=== PATIENT | female | born 1935 | race Caucasian/White ===

== ENCOUNTER → 2017-10-11 | Emergency (ER) | payer MEDICARE, OTHER ==
[~2017-10-11] VITALS: Ht 172.7 cm; Wt 54.4 kg
[~2017-10-11] MED LIST: AMPICILLIN TRI250 MG PO; CIPRO250 MG PO; FLUOXETINE HCL20 MG PO; FOLIC ACID1 MG PO; FOSAMAX70 MG PO; IBUPROFEN200 MG PO; LEVOXYL100 MCG PO; MELOXICAM7.5 MG; MIRTAZAPINE15 MG PO; MULTI-VITAMIN1 EACH PO; THYROID MED; VITAMIN B-12100 MCG PO; VITAMIN B-6100 MG PO; [UNRECOGNIZED DRUG - OTHER] PO
== END ==
LOC: ED 09:53
DX: S39.012A Strain of muscle, fascia and tendon of lower back, initial encounter (principal); E03.9 Hypothyroidism, unspecified; Z79.899 Other long term (current) drug therapy; W19.XXXA Unspecified fall, initial encounter
CPT/HCPCS: 72100; 99283

== ENCOUNTER 2017-10-18 16:21 | Emergency (ER) | payer MEDICARE, OTHER ==
[~2017-10-18] VITALS: Ht 172.7 cm; Wt 45.4 kg
[~2017-10-18 16:21] MED LIST changes: -CIPRO250 MG PO
[2017-10-18] MEDS ORDERED: CIPRO250 MG PO (18:02)
--- NOTE | 2017-10-19 12:25 | EKG ---
[facility] [address] [facility] [place] [address] Signed Sinus rhythm with premature atrial complexes Septal infarct , age undetermined Prolonged QT Abnormal ECG No previous ECGs available Confirmed by HUONG CLARK MD ([id number]) on 10/19/2017 12:25:31 PM Electronically Signed By: HUONG CLARK MD 10/19/17 1225 PATIENT NAME: ASHLEY PINTO Electrocardiogram DATE OF : 35 PHYSICIAN: HUONG CLARK MD REPORT #: [id number] REPORT IS CONFIDENTIAL AND NOT TO BE RELEASED WITHOUT AUTHORIZATION
== END 2017-10-18 18:19 | disposition home or self-care (01) ==
LOC: ED 16:21
DX: R07.9 Chest pain, unspecified (principal); N39.0 Urinary tract infection, site not specified; E03.9 Hypothyroidism, unspecified; Z79.899 Other long term (current) drug therapy
CPT/HCPCS: 71045; 80053; 81001; 84484; 85025; 87088; 93005; 93010; 96374; 96375; 99283; J1100; J1885

== ENCOUNTER 2018-05-20 08:30 | Inpatient (IN) | payer MEDICARE, OTHER ==
[~2018-05-20] VITALS: Ht 172.7 cm; Wt 40.8 kg
[~2018-05-20 08:30] MED LIST changes: +AMOXICILLIN250 MG PO; +CEFTRIAXONE1 G1 IV; +CIPRO250 MG PO; +CYCLOBENZAPRINE10 MG PO; +FLOMAX0.4 MG PO; -FLUOXETINE HCL20 MG PO; +KLOR-CON 1010 MEQ PO; -LEVOXYL100 MCG PO; +LEVOXYL75 MCG PO; +MULTI VITAMIN1 EACH PO; +PREDNISONE20 MG PO; +PROZAC40 MG PO; +SENNA-S TABLET1 EACH PO; +SYNTHROID25 MCG PO; +ULTRAM50 MG PO
--- OUTSIDE RECORDS SUMMARY | 2018-05-20 08:36 | XMS ---
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 Care History Medical/Surgical 01/14/2018 [facility] - Patient is currently established with [facility]. If patient is seen in the ED during business hours. Please contact CHWs at [facility]. Care Recommendation: This patient has had 5 or more Emergency Department visits in the last 12 months.\T\nbsp; Patient requires education on the scope and purpose of the ED as an acute care provider not a Primary Care Provider and should not be utilized for chronic conditions.\T\nbsp; These are guidelines and the provider should exercise clinical judgment when providing care. 01/10/2018 [facility] - Patient is discharging from [facility] today 01/10/2018. - [facility] does not feel that the patient is ready to go home but patient wants to go home at this time. - Patient has an apt with Dr Kapoor on 01/21/18 to establish care. - CHW has attempted to contact patient son with 3 messages. Patient stated that is the person of contact in regards to her care. 10/22/2017 [facility] - CHW spoke with patient who stated they would like patient to have physical therapy but patient does not have a PCP. - Patient stated they will come on 10/23/[address] Meraz apt to fill out the paperwork to set up patient with a PCP. - CHW stated to contact CHW once paperwork has been turned in so CHW can contact a PCP about reviewing records as soon as possible. Care Recommendation: This patient has had 5 or more Emergency Department visits in the last 12 months.\T\nbsp; Patient requires education on the scope and purpose of the ED as an acute care provider not a Primary Care Provider and should not be utilized for chronic conditions.\T\nbsp; If patient returns to ED please contact Community Health WorkerGabrielle at [phone]. These are guidelines and the provider should exercise clinical judgment when providing care. E.D. VISIT COUNT (12 MO.) 6 [facility] TOTAL 6 NOTE: Visits indicate total known visits. ED/UCC VISIT TRACKING (12 MO.) 05/20/2018 08:31 [facility] TYPE: Emergency COMPLAINT: - WEAKNESS/POSS DEHYDRATION 02/26/2018 23:15 [facility] TYPE: Emergency COMPLAINT: - ALTERED MENTAL STATUS 02/18/2018 12:44 [facility] TYPE: Emergency COMPLAINT: - ABD PAIN 12/07/2017 11:45 [facility] TYPE: Emergency COMPLAINT: - WEIGHT LOSS, R KNEE PAIN DIAGNOSES: - Polymyalgia rheumatica - Localized connective tissue disorder, unspecified - Abnormal weight loss - Stable burst fracture of T11-T12 vertebra, initial encounter for closed fracture - Adverse effect of unspecified narcotics, initial encounter - Unspecified fall, initial encounter - Hypokalemia - Toxic encephalopathy - Hypothyroidism, unspecified - Adult failure to thrive - Urinary tract infection, site not specified - Unspecified urinary incontinence - Other malaise - Unspecified severe protein-calorie malnutrition 10/18/2017 16:22 [facility] TYPE: Emergency COMPLAINT: - CHEST PAIN DIAGNOSES: - Chest pain, unspecified - Other penitentiary (current) drug therapy - Urinary tract infection, site not specified - Hypothyroidism, unspecified 10/11/2017 09:55 [facility] TYPE: Emergency COMPLAINT: - FALL,HEAD BACK PAIN DIAGNOSES: - 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 - Hypothyroidism, unspecified - Unspecified fall, initial encounter - Low back pain - Strain of muscle, fascia and tendon of lower back, initial encounter INPATIENT VISIT TRACKING (12 MO.) 02/26/2018 23:16 [facility] TYPE: Medical Surgical COMPLAINT: - SEPSIS, URINARY SOURCE DIAGNOSES: - Do not resuscitate - Retention of urine, unspecified - Metabolic encephalopathy - Unspecified mood [affective] disorder - Dehydration - Personal history of other diseases of the digestive system - Urinary tract infection, site not specified - 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 - Unspecified severe protein-calorie malnutrition - Adult failure to thrive - Personal history of (healed) osteoporosis fracture - Body mass index (BMI) 19.9 or less, adult - Cachexia - Acute kidney failure, unspecified - Unspecified osteoarthritis, unspecified site - 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 coli] as the cause of diseases classified elsewhere - Esophagitis, unspecified - Unspecified severe protein-calorie malnutrition - Unspecified atrial fibrillation 12/09/2017 00:47 [facility] TYPE: Neuro Surgery DIAGNOSES: 52923. Osteoporotic compression fracture. 66168. Dysphagia, unspecified 41547. Age-related osteoporosis without current pathological fracture 66447. Unspecified fracture of T11-T12 vertebra, initial encounter for closed fracture 12/07/2017 21:14 [facility] TYPE: Medical Surgical COMPLAINT: - WEIGHT LOSS, R KNEE PAIN DIAGNOSES: - Urinary tract infection, site not specified - Adverse effect of unspecified narcotics, initial encounter - Abnormal weight loss - Unspecified severe protein-calorie malnutrition - Hypothyroidism, unspecified - Other malaise - Stable burst fracture of T11-T12 vertebra, initial encounter for closed fracture - Unspecified urinary incontinence - Unspecified fall, initial encounter - Toxic encephalopathy - Localized connective tissue disorder, unspecified - Hypokalemia - Adult failure to thrive - Polymyalgia rheumatica [email or web address]
[2018-05-20] MEDS ORDERED: FLUOXETINE HCL40 MG PO (09:49)
[2018-05-20] MEDS ORDERED: SERTRALINE HCL100 MG PO (09:56)
[2018-05-20] MEDS ORDERED: LEVOTHYROXINE25 MCG PO (09:57)
[2018-05-20] MEDS ORDERED: PROTONIX40 MG PO (09:58)
[2018-05-20] MEDS ORDERED: K-TAB ER20 MEQ PO (10:01)
[2018-05-20] MEDS ORDERED: METOPROLOL TART25 MG PO (10:02)
[2018-05-20] MEDS ORDERED: ONDANSETRON ODT8 MG PO (10:03)
--- NOTE | 2018-05-20 12:05 | NUR ---
PATIENT TO FLOOR FROM ED, ANSWERING YES OR NO QUESTIONS, APPEARS DROWSY. FULL BODY ASSESMENT DONE. NEW ORDERS INITIATED. SECOND LACTIC ACID DRAWN. VS STABLE.
--- NOTE | 2018-05-20 12:30 | NUR ---
ASSESSMENT COMPLETED AT THIS TIME. PT IS WIDE AWAKE AND ALERT, CALM, COOPERATIVE AND PLEASANT BUT WITH FLAT AFFECT. PT IS ORIENTED TO SELF BUT DISORIENTED TO ALL ELSE. PT'S ORAL MUCOSAL LINING IS VERY DRY- ORAL CARES COMPLETED. PT'S ON ROOM AIR. LUNG SOUNDS CLEAR/DIMINISHED BUT SHE IS TACHYPNEIC. SHE DENIES ANY SOB OR TROUBLE BREATHING. SHE DOES HAVE A VERY CONGESTED, MOIST COUGH BUT SHE'S VERY WEAK SO HER COUGH IS VERY WEAK- NONPRODUCTIVE AND UNABLE TO COUGH UP SPUTUM. ENCOURAGEMENT TO COUGH AND DEEP BREATHE REQUIRED. SEVERE MALNUTRITION EVIDENT. NORMAL ACTIVE BOWEL SOUNDS. PT COUGHS FREQUENTLY WHILE SWALLOWING. PT STATES SHE'S PASSING GAS BUT IS UNABLE TO TELL ME WHEN HER LAST BM WAS. PT VERY WEAK/ FAILURE TO THRIVE EVIDENT; MOTOR STRENTH WEAK; DENIES ANY NUMBNESS/TINGLING. OVERALL SKIN CONDITION IS DRY AND FRAGILE- NO OPEN WOUNDS ON BODY BUT PT HAS TWO PRESSURE SORES ON HER BODY. MARTHA, SPINAL PROMINENCE ON MID UPPER BACK IS RED AND BLANCHABLE- I PLACED AN ALLEYVN ON THIS FOR PROTECTION. LARGE, RED PRESSURE ULCER ON COCCYX AND SURROUNING BUTTOCKS- MOSTLY BLANCHABLE EXCEPT FOR DIRECTLY ON COCCYX IT IS SLOW TO STEPHANE. ALLEYVN PLACED ON COCCYX FOR SKIN PROTECTION WELL. PT REPOSITIONED TO HER LEFT SIDE WITH PILLOW SUPPORT AT THIS TIME- WILL MAINTAIN Q2HR TURNS/REPOSITIONING- ALL EXTREMITIES ELEVATED ON PILLOWS AND HEELS IN HEEL PROTECTORS. NS RUNNING CONTINUOUSLY AT 200 ML/HR INTO HER LEFT AC PIV WITHOUT COMPLICATIONS. PT HAS ARRIVED WITH A BALDERAS THAT WAS PLACED IN THE ED PRIOR TO TRANSFER- DRAINS ADEQUATE, YELLOW URINE WITH SOME SEDIMENT. BALDERAS CARES COMPLETED. VERY SLOW VERBAL RESPONSE/ MOUTHS HER ONE WORDED RESPONSES. PT SHES HER HEAD NO WHEN ASKED IF SHE NEEDS ANYTHING. SHE DENIES PAIN, N/V, SOB OR BREATHING ISSUES. CALL LIGHT WITHIN REACH. FALL PRECAUTIONS IN PLACE. WILL CONTINUE TO MONITOR.
--- NOTE | 2018-05-20 13:30 | NUR ---
PT SLEEPING WITH HER EYES CLOSED WITHOUT ANY SIGNS OF PAIN OR DISCOMFORT. WILL CONTINUE TO MONITOR.
--- NOTE | 2018-05-20 13:41 | NUR ---
PT RECENTLY ARRIVED FROM ED TO CCU. PT WAS TRYING TO DRINK WITH ASSISTANCE FROM JAROCHO HOLLOWAY, AND COUGHING. RN ENCOURAGED PT TO KEEP COUGHING, AND I FOLLOWED HER LEAD. PT WAS TRYING TO TALK, I TOLD HER I WOULD RETURN. EXTENDED A BLESSING, WILL FOLLOW NEEDED
[2018-05-20] MEDS ORDERED: ASPIR-LOW81 MG PO (13:54)
[2018-05-20] MEDS ORDERED: MIRALAX17 GM PO (13:57)
--- NOTE | 2018-05-20 14:05 | NUR ---
Medications reconciled using [facility]
--- NOTE | 2018-05-20 14:21 | NUR ---
PT CALLED TO GET UP TO THE CAMMODE. PT TOLERATED WELL. ASSISTED BACK TO BED WITH ONE PERSON ASSIST. WILL CONTINUE TO CLOSELY MONITOR.
--- NOTE | 2018-05-20 14:40 | NUR ---
PT REPOSITIONED TO HER RIGHT SIDE WITH PILLOW SUPPORT. ALL EXTREMITIES ELEVATED OFF BED. HEEL PROTECTORS IN PLACE. PT AWAKE AND ALERT; DENIES ANY PAIN AND NODS "YES" THAT SHE IS COMFORTABLE. DENIES ANY FUTHER NEEDS TO BE MET AT THIS TIME. CALL LIGHT WITHIN REACH. FALL PRECAUTIONS IN PLACE. WILL CONTINUE TO MONITOR.
--- NOTE | 2018-05-20 16:30 | NUR ---
ASSESSMENT COMPLETED AT THIS TIME. NO CHANGES FROM 1230 ASSESSMENT EXCEPT LUNG LOBES ARE RHONCI ON EXPIRATION THROUGHOUT. SHE REMAINS TACHYPNEIC AND RT IS AWARE/HAS SEEN THE PT. DEEP BREATHING AND COUGHING EXERCISES COMPLETED WITH THE PT- SHE STILL HAS A VERY WEAK, CONGESTED COUGH. O2 SATS MID 90'S ON ROOM AIR. PT'S BALDERAS DRAINING LIGHT YELLOW ADEQUATE URINE AMOUNT. ORAL CARES GIVEN AGAIN HER MOUTH IS VERY DRY FROM MOUTH BREATHING. ALLEYVNS REMAIN CDI. NO BM. PT REPOSITIONED TO THE LEFT SIDE WITH PILLOWS. HEEL PROTECTORS ON AND ELBOWS OFF BED ON PILLOWS. PT NODS "YES" WHEN ASKED IF SHE'S COMFORTABLE, SHAKES HER HEAD "NO" WHEN ASKED IF IN PAIN, AND SHAKES HER HEAD "NO" WHEN ASKED IF I CAN GET OR DO ANYTHING FOR HER. CALL LIGHT WITHIN REACH. FALL PRECAUTIONS IN PLACE. WILL CONTINUE TO MONITOR.
--- NOTE | 2018-05-20 17:36 | NUR ---
PT RESTING IN BED WITH NO C/O PAIN. NO REQUEST OR CONCERNS. CALL LIGHT WITHIN REACH. WILL CONTINUE TO MONITOR.
--- NOTE | 2018-05-20 18:34 | NUR ---
TURNED PT TO RIGHT SIDE WITH PILLOWS. SHE DENIED ANY PAIN OR DISCOMFORT. NO QUESTIONS OR CONCERNS. CALL LIGHT WITHIN REACH. WILL CONTINUE TO MONITOR.
--- NOTE | 2018-05-20 19:36 | NUR ---
REPORT RC'D FROM DAY SHIFT NURSE AMIE. PT CURRENTLY RESTING IN BED WITH EYES CLOSED, RESPIRATIONS EVEN AND UNLABORED, CRISTEL CUTE DISTRESS NOTED. FULL ASSESSMENT TO BE COMPLETED.
--- NOTE | 2018-05-20 20:02 | NUR ---
PT AWAKENS EASILY TO VERBALI STIMULI. DISORIENTED TO ALL EXCEPT SELF, ABLE TO FOLLOW COMMANDS, SLOW TO RESPOND. SINUS RHYTHM WITH FREQUENT PAC NOTED TO MONITOR, HR 80-90'S, LAST BP 162/71, MAP 90, NO EDEMA NOTED, SKIN COOL, CAPILLARY REFILL LESS THAN 3 SECONDS. DENIES PAIN. DENIES N/T IN EXTREMITIES. RESPIRATIONS 32, SPO2 100% ON ROOM AIR, RHONCHI NOTED IN BUL, OCCANSIONAL NONPRODCUTIVE COUGH, ENCOURAGED I/S USE. BOWEL TONES ACTIVE X4, DENIES NAUSEA, UNKNOWN LAST BM, TOLERATING CLEAR LIQUID DIET, ENCOURAGE PO INTAKE, ASPIRATION PRECAUTIONS. BALDERAS CATH IN PLACE DRAINING YELLOW URINE, WNL. NS INFUSING AT 200 ML/HR, IV SITE PATENT, WNL. PT CURRENTLON SIDE SIDE WITH HEEL PROTECTORS IN PLACE, TURN Q2H, ALLYVN TO COCCXY AND MIDBACK. DENIES OTHER NEEDS. CALL LIGHT WITIN REACH.
--- NOTE | 2018-05-20 21:40 | NUR ---
NO ACUTE CHANGES. PM CARE, ORAL CARE, AND CATH CARE COMPLETED. PT REPOSITIONED TO RIGHT SIDE, HEEL PROTECTORS IN PLACE. WARM BLANKET PROVIDED. PT NODS "YES" WHEN ASKED IF SHE IS COMFORTABLE. PT DENIES OTHER NEEDS. CALL LIGHT WITHIN REACH, REORIENTED TO CALL LIGHT, NODS "YES" IN AGREEANCE TO INSTRUCTIONS.
--- NOTE | 2018-05-20 22:22 | NUR ---
PT'S OXYGEN SATURATION NOTED TO BE 85% WHILE SLEEPING. THIS RN IN ROOM TO ASSESS PT. NO ACUTE DISTRESS NOTED. PT AWAKENS EASILY TO VERBAL STIMULI. 2L NC APPLIED WHILE PT RESTING, CURRENT SPO2 96% ON 2L. WILL CONTINUE TO MONTIOR.
--- NOTE | 2018-05-20 23:00 | NUR ---
PT'S OXYGEN SATURATION NOTED TO BE 87% ON 2L NC. OXYMASK APPLIED AT THIST STEPHANIE, OXYGEN SATURATION INCREASED TO 93% ON 3L. WILL CONTINUE TO MONITOR.
--- NOTE | 2018-05-21 00:15 | NUR ---
PT NOTED TO HAVE SEVERAL RUNS OF NONSUSTAINED SVT WITH HR INTO 160'S THAT QUICKLY RETURNED TO BASELINE HR 90-100'S. PT CURRENTLY RESTING IN BED WITH EYES CLOSED, RESPIRATIONS EVEN AND UNLABORED, NO ACUTE DISTRESS NOTED. PHONE CALL TO DR. BAKER REGARDING HR. PER DR. BAKER, GIVE 5MG METOPROLOL IV ONCE, ORDER READ BACK AND VERIFIED. 5MG IV METOPROLOL GIVEN, WILL CONTINUE TO MONITOR.
--- NOTE | 2018-05-21 01:15 | NUR ---
PT'S HR REMAINS IN THE 140'S W/O RETURN TO BASELINE 90'S. LAST BP 157/92, MAP 110, HR 147. WILL CONTINUE TO MONITOR.
--- NOTE | 2018-05-21 01:35 | NUR ---
PT'S HR REMAINS IN 140'S W/O IMPROVMENT. PHONE TO DR. BAKER REGARDING HR. PER DR. BAKER, GIVE 5MG BOLUS DILTIAZEM ONCE AND BEGIN DILTIAZEM GTT AT 5MG/HOUR, TITRATE NEEDED. ORDER READ BACK AND VERIFIED.
--- NOTE | 2018-05-21 01:45 | NUR ---
5MG IV CARDIZEM BOLUS ADMINISTERED SLOWLY VIA IV PUMP AND CADIZEM GTT INITIATED AT 5MG/HR. IV SITE INTACT AND PATENT.
--- NOTE | 2018-05-21 02:30 | NUR ---
CARDIZEM GTT TITRATED TO 2.5MG/HR FOR HR IN THE 80'S.
--- NOTE | 2018-05-21 03:30 | NUR ---
PT NOTED TO BE OBTUNDED UPON ASSESSMENT, DOES NOT RESPOND TO PAINFUL STIMULI INCLUDING STERNAL RUB, EXTREMITIES FLACCID. PT CURRENTLY ON 4L OXYMASK, ACCESSORY MUSCLE USE NOTED. COURSE LUNG SOUNDS IN LLL. MOIST LUNG SOUNDS WITH EXPIRATORY WHEEZE IN BUL. PHONE CALL TO DR. BAKER REGARDING CHANGES. PER DR. BAKER, OBTAIN ABG AT THIS TIME, COLLECTED. PHONE CALL TO PT'S SON MILY REGARDING CHANGES, SON VERBALIZED "IT'S BEEN A LONG TIME COMING, I WILL BE IN LATER IN THE MORNING, PLEASE CALL FOR ANY NEW CHANGES."
--- NOTE | 2018-05-21 03:30 | NUR ---
DILTIAZEM GTT STOPPED AT THIS TIME.
--- NOTE | 2018-05-21 04:13 | NUR ---
CALLED AND SPOKE TO DR. BAKER REGARDING PT'S ABG RESULTS. ORDERS RECEIVED FOR BIPAP.
--- NOTE | 2018-05-21 04:33 | NUR ---
PHONE CALL TO DR. BAKER REGARDING PT DEMISE. HEART AND LUNG SOUNDS ASCULTATED FOR FULL MINUTE, NO HEART OR LUNG SOUNDS HEARD. NO PERIPHERAL OR CENTERAL PULSES PALPATED.
--- NOTE | 2018-05-21 06:10 | NUR ---
I WAS CALLED IN AFTER PT HAD PASSED. I NOTIFIED PT'S SON WHO IS LISTED NOK IN HER FILE. HE NOTIFIED HIS FATHER, THE PT'S . FAMILY DID NOT DESIRE TO COME INTO THE HOSPITAL TO SEE THE PT. FAMILY DECIDED ON [facility]. I CALLED [facility], BODY WAS SENT THERE.
--- NOTE | 2018-05-21 06:21 | EKG ---
[facility] [address] [facility] [place] [address] Signed Atrial fibrillation with rapid ventricular response Septal infarct (cited on or before 18-OCT-2017) Abnormal ECG When compared with ECG of 26-FEB-2018 23:49, Atrial fibrillation has replaced Sinus rhythm Vent. rate has increased BY 49 BPM Questionable change in initial forces of Anterior leads Confirmed by STIVEN BAKER MD ([id number]) on 05/21/2018 6:21:05 AM Electronically Signed By: STIVEN BAKER MD 05/21/18 0621 PATIENT NAME: ASHLEY PINTO Electrocardiogram DATE OF : 35 PHYSICIAN: STIVEN BAKER MD REPORT #: [id number] REPORT IS CONFIDENTIAL AND NOT TO BE RELEASED WITHOUT AUTHORIZATION
--- NOTE | 2018-05-21 06:55 | NUR ---
PT DC'D WITH [facility] AT THIS TIME.
--- NOTE | 2018-05-21 07:05 | NUR ---
PT ONLY WORE BIPAP FOR 2 MINUTES BEFORE IT WAS TAKEN OFF DUE TO PATIENT BEING IN ASTOLE.
== END 2018-05-21 04:33 | DRG 698 ==
LOC: ED 08:30 → CCU 11:10
PROVIDERS: ADMIT Internal Medicine
DX: T83.511A Infection and inflammatory reaction due to indwelling urethral catheter, initial encounter (principal); A41.9 Sepsis, unspecified organism; J69.0 Pneumonitis due to inhalation of food and vomit; E43 Unspecified severe protein-calorie malnutrition; M35.1 Other overlap syndromes; L89.151 Pressure ulcer of sacral region, stage 1; R62.7 Adult failure to thrive; E03.9 Hypothyroidism, unspecified; K59.00 Constipation, unspecified
CPT/HCPCS: 36415; 36600; 51702; 71045; 80053; 81001; 82803; 83605; 83690; 85025; 87040; 87077; 87088; 87186; 93005; 93010; 94660; 96361; 96374; 99285-25; J2543; J7030